=== PATIENT | female | born 1990 | race Two or more races ===

== ENCOUNTER 2022-11-09 13:31 | Outpatient (CLI) | payer BC ==
[2022-11-09 14:40] LABS: BASOPHILS % (AUTO) 0.6 % (0.0-2.0); HEMATOCRIT 38 % (33-45); HEMOGLOBIN 12.7 g/dL (11.5-14.8); LYMPHOCYTES # (AUTO) 1.6 K/uL (0.8-4.8); LYMPHOCYTES % (AUTO) 21.1 % (20.0-44.0); MEAN CORPUSCULAR HGB CONC 33 g/dl (31.0-36.0); MEAN CORPUSCULAR VOLUME 89 fL (82-100); MONOCYTES # (AUTO) 0.4 K/uL (0.1-1.30); MONOCYTES % (AUTO) 5.4 % (2.0-12.0); NEUTROPHILS # (AUTO) 5.2 K/uL (1.8-8.9); NEUTROPHILS % (AUTO) 69.9 % (43.0-81.0); PLATELET COUNT (AUTO) 277 K/uL (150-450); RED BLOOD CELL COUNT(AUTO) 4.33 MIL/uL (4.0-5.2); WHITE BLOOD COUNT (AUTO) 7.4 K/uL (4.3-11.0)
[2022-11-09 14:59] LABS: ALBUMIN 3.8 g/dL (3.4-5.0); BILIRUBIN,DIRECT 0.1 mg/dL (0.0-0.2); BILIRUBIN,TOTAL 0.3 mg/dL (0.2-1.0); TOTAL PROTEIN, SERUM 7.4 g/dL (6.4-8.2)
== END 2022-11-09 23:59 | disposition home or self-care (01) ==
LOC: WOU 13:31
PROVIDERS: ATTEND Podiatrist Foot & Ankle Surgery
DX: L60.3 Nail dystrophy (principal); R60.0 Localized edema
CPT/HCPCS: 36415; 80076-TC; 85025-TC; G0463

== ENCOUNTER 2022-11-16 14:00 | Outpatient (CLI) | payer BC | END 2022-11-16 23:59 | disposition home or self-care (01) | LOC: WOU 14:00 | PROVIDERS: ATTEND Podiatrist Foot & Ankle Surgery | DX: L60.3 Nail dystrophy (principal); M76.71 Peroneal tendinitis, right leg; B35.1 Tinea unguium; R60.0 Localized edema; M25.571 Pain in right ankle and joints of right foot | CPT/HCPCS: 88304-TC; 88311-TC; G0463 ==

== ENCOUNTER 2022-12-24 17:15 | Emergency (ER) | payer BC, OTHER ==
[~2022-12-24] VITALS: Ht 165.1 cm; Wt 70.3 kg
--- NOTE | 2022-12-24 17:40 | NUR ---
RASH TO BOTH HANDS STARTED YESTERDAY AFTER CLENING HER PEN WITH SANI-CLOTH WIPES WITH BARE HANDS,TOOK BENADRYL 25 MG PO 4 HRS AGO
[2022-12-24] MEDS ORDERED: HYDR28.32 TP ×2 (17:58→19:26)
--- NOTE | 2022-12-24 18:24 | NUR ---
Patient discharged to home in stable condition. Written and verbal after care instructions given. Patient verbalizes understanding of instruction.
[2022-12-24 18:27] VITALS: BP 125/79
== END 2022-12-24 18:27 | disposition home or self-care (01) ==
LOC: ER 18:15
DX: L25.8 Unspecified contact dermatitis due to other agents (principal); L29.9 Pruritus, unspecified; Z79.899 Other long term (current) drug therapy

== ENCOUNTER 2023-01-13 09:57 | Outpatient (CLI) | payer BC, OTHER ==
[~2023-01-13 09:57] MED LIST: HYDR28.32 TP
[2023-01-13 11:23] LABS: BILIRUBIN,DIRECT 0.2 mg/dL (0.0-0.2); BILIRUBIN,TOTAL 0.5 mg/dL (0.2-1.0); TOTAL PROTEIN, SERUM 7.7 g/dL (6.4-8.2)
== END 2023-01-13 23:59 | disposition home or self-care (01) ==
LOC: US 09:57
PROVIDERS: ATTEND Family Medicine
DX: R94.5 Abnormal results of liver function studies (principal); R10.9 Unspecified abdominal pain
CPT/HCPCS: 36415; 76700-TC; 80076-TC; 86431-TC; 86706; 86709-TC; 86803; 87340